=== PATIENT | male | born 1980 | race Caucasian/White ===

== ENCOUNTER 2020-07-30 11:28 | Emergency (ER) | payer OTHER, SELFPAY ==
--- NOTE | 2020-07-30 | ECG_ITS ---
Test Reason : CP Blood Pressure : / mmHG Vent. Rate : 080 BPM Atrial Rate : 080 BPM P-R Int : 150 ms QRS Dur : 090 ms QT Int : 358 ms P-R-T Axes : 019 010 -01 degrees QTc Int : 412 ms Sinus rhythm with marked sinus arrhythmia Nonspecific T wave abnormality Abnormal ECG No previous ECGs available Referred By: Jc Shankar Electronically Signed By:JACIEL RANGEL MD
--- NOTE | ~2020-07-30 | XR_ITS ---
EXAMINATION: XR CHEST CLINICAL INFORMATION: Chest pain COMPARISON: 06/09/2024 TECHNIQUE: Portable AP view of the chest was obtained. FINDINGS: The lung volumes are decreased. The cardiac silhouette is unchanged in size. No focal consolidation or atelectasis is seen. No obvious pleural effusion. XR/XR chest 1V IMPRESSION: Low lung volumes. The lungs are clear.
[2020-07-30 11:39] VITALS: BP 140/80; PULSE 93; RESP 16; TEMP 36.7; O2SAT 97; BMI 51.5
[2020-07-30 13:10] LABS: MANUAL DIFF FLAG NO
[2020-07-30 13:14] LABS: Basophils Absolute Auto 0.1 X10*3/uL (0.0-0.2); Basophils Percent Auto 0.5 % (0-2); Eosinophils Absolute Auto 0.2 X10*3/uL (0.0-0.4); Eosinophils Percent Auto 2.3 % (0-4); Imm Gran Abs Auto 0.04 X10*3/uL (0.00-0.03); Imm Gran Pct Auto 0.4 % (0.0-0.4); Lymphocytes Absolute Auto 2.5 X10*3/uL (1.2-4.9); Lymphocytes Percent Auto 27.3 % (20-40); Mean Corpuscular HGB Conc 33.3 g/dl (31.0-36.0); Mean Corpuscular Hemoglobin 27.7 pg (27.0-33.0); Mean Platelet Volume 10.2 fL (9.4-12.4); Monocytes Absolute Auto 0.7 X10*3/uL (0.1-1.2); Monocytes Percent Auto 7.4 % (2-11); Neutrophils Absolute Auto 5.8 X10*3/uL (2.0-8.3); Neutrophils Percent Auto 62.1 % (45-73); Platelet Count 260 X10*3/uL (160-400); Red Blood Count 5.06 X10*6/uL (4.60-5.80); Red Cell Distribution Width 12.8 % (11.0-16.0); White Blood Count 9.3 X10*3/uL (4.8-10.8)
[2020-07-30 13:37] LABS: Anion Gap 14 (12-20); Blood Urea Nitrogen 18 mg/dL (9-16); Calcium 9.1 mg/dL (8.4-10.2); Carbon Dioxide 23 mmol/L (22-29); Chloride 107 mmol/L (96-108); Creatinine Clr Calc Pharmacy 157.7; Estimated Glomerular Filt Rate > 60; Glucose Random 81 mg/dL (60-115); Potassium 4.6 mmol/L (3.3-5.1); Sodium 139 mmol/L (135-145)
[2020-07-30 13:45] LABS: Troponin-I High Sensitivity < 3.5 ng/L (<3.5-35.0)
[2020-07-30 16:04] VITALS: BP 137/77; PULSE 75; RESP 17; TEMP 37.1; O2SAT 99
--- NOTE | 2020-07-30 16:16 | ED_ITS ---
HPI - Chest Pain General Chief Complaint: Chest Pain Stated Complaint: CHEST PAIN Time Seen by Provider: 07/30/20 16:16 Source: patient Mode of arrival: ambulatory Limitations: no limitations History of Present Illness HPI narrative: Patient has a COVID 2 months ago since then having off and on right-sided chest pain for last 3 days pain is more frequent is sharp in correct lasting for few minutes feel little short of breath but saturating 100% on arrival no known coronary artery disease no cough no fever MD complaint: chest pain Onset (ago): day(s) (3) Timing of current episode: episodic Prior episodes: Yes Onset: during rest Pain location: substernal and right chest Pain radiation: right arm Severity: mild Quality: sharp Exacerbating factors: nothing Context: recent illness Related Data Allergies Allergy/AdvReac Type Severity Reaction Status Date / Time penicillin V Allergy Unknown Unverified 02/03/18 00:00 Penicillins [PENICILLINS] Allergy Unknown UNKNOWN Unverified 02/25/20 15:42 Sulfa (Sulfonamide Allergy Unknown Unverified 02/03/18 00:00 Antibiotics) sulfamethoxazole Allergy Unknown UNKNOWN Unverified 02/25/20 15:42 [From BACTRIM] trimethoprim [From BACTRIM] Allergy Unknown UNKNOWN Unverified 02/25/20 15:42 Review of Systems Review of Systems: Constitutional : No Weight loss, No Fever, No Chills ENT/Mouth : No sore throat, No Rhinorrhea Eyes: No Eye Pain, No Swelling Cardiovascular : + Chest Pain, no palpitations Respiratory : No Cough, No Sputum, +shortness of breath Gastrointestinal : no Nausea, No Vomiting, No Diarrhea, No abdominal Pain, no bl ack stools Genitourinary : No Dysuria, No Urinary Frequency Musculoskeletal : No joint pain, No Myalgias, No Joint Swelling Skin : No Skin Lesions, No rash Neuro : No Weakness, No Numbness, No Dizziness, No Headache Psych : No Anxiety/Panic, No Depression Heme/Lymph: No Bruising, No Lymphadenopathy Endocrine : No Polyuria, No Polydipsia All other systems reviewed and are negative PMFSH Past Medical History Surgical History History of appendectomy History of repair of ACL Social History Social History Alcohol intake: never Smoking Status: Never smoker Use of substances other than those prescribed or required for medical reasons: No Advance Directives: Yes Advance Directives Information Provided: Yes Advance Directives on File: No Physical Exam Vital Signs: Vital Signs: Last Vital Signs Temp 98.8 F 07/30/20 16:04 Pulse 75 07/30/20 16:04 Resp 17 07/30/20 16:04 BP 137/77 07/30/20 16:04 Pulse Ox 99 07/30/20 16:04 Body Mass Index 51.5 Appearance: Alert. Oriented X3. No acute distress. Eyes: Pupils equal, round and reactive to light. ENT: Pharynx normal. Neck: Normal inspection. Neck supple. CVS: Normal heart rate and rhythm. Pulses normal. Respiratory: No respiratory distress. Breath sounds normal. Tender to palpation right anterior chest Abdomen: Soft and nontender. Bowel sounds are present, no mass palpable, no CVA tenderness Skin: Skin warm and dry. Normal skin color. Normal skin turgor. Extremities: No lower extremity edema. Neuro: Oriented X 3. No motor deficit. No sensory deficit. MDM - Chest Pain MDM Narrative Medical decision making narrative: Patient atypical chest pain cardiogram without any acute ischemic changes troponin negative D-dimer also PE chest x-ray negative for infiltrate will discharge patient home advised to take analgesic and follow with PCP Differential Diagnosis Differential diagnosis: Likely atypical chest pain Medical Records Data Attestation: I reviewed the patient's medical records. Lab Data Attestation: I reviewed the patient's lab results. Result diagrams: 07/30/20 13:00 07/30/20 13:00 Labs: Lab Results 07/30/20 07/30/20 07/30/20 Range/Units 13:00 13:00 13:00 WBC 9.3 (4.8-10.8) X10*3/uL RBC 5.06 (4.60-5.80) X10*6/uL Hgb 14.0 (14.0-18.0) g/dl Hct 42.0 (42-52) % MCV 83.0 (80-98) fL MCH 27.7 (27.0-33.0) pg MCHC 33.3 (31.0-36.0) g/dl RDW 12.8 (11.0-16.0) % Plt Count 260 (160-400) X10*3/uL MPV 10.2 (9.4-12.4) fL Immature Gran % (Auto) 0.4 (0.0-0.4) % Neut % (Auto) 62.1 (45-73) % Lymph % (Auto) 27.3 (20-40) % [place] % (Auto) 7.4 (2-11) % Eos % (Auto) 2.3 (0-4) % Baso % (Auto) 0.5 (0-2) % Lymph # (Auto) 2.5 (1.2-4.9) X10*3/uL [place] # (Auto) 0.7 (0.1-1.2) X10*3/uL Eos # (Auto) 0.2 (0.0-0.4) X10*3/uL Baso # (Auto) 0.1 (0.0-0.2) X10*3/uL Abs Immat Gran (auto) 0.04 H (0.00-0.03) X10*3/uL Absolute Neuts (auto) 5.8 (2.0-8.3) X10*3/uL Absolute Nucleated RBC 0.000 (0.0-0.012) X10*3/uL Nucleated RBC % (auto) 0.0 (0.0-0.2) /100WBC D-Dimer < 200 NG/ML Hold Blue Top SEE NOTE Sodium 139 (135-145) mmol/L Potassium 4.6 (3.3-5.1) mmol/L Chloride 107 (96-108) mmol/L Carbon Dioxide 23 (22-29) mmol/L Anion Gap 14 (12-20) BUN 18 H (9-16) mg/dL Creatinine 0.80 (0.5-1.4) mg/dL Estim Creat Clear Calc 157.7 Estimated GFR > 60 Random Glucose 81 (60-115) mg/dL Calcium 9.1 (8.4-10.2) mg/dL Troponin I High Sens (<3.5-35.0) ng/L 07/30/20 Range/Units 13:00 WBC (4.8-10.8) X10*3/uL RBC (4.60-5.80) X10*6/uL Hgb (14.0-18.0) g/dl Hct (42-52) % MCV (80-98) fL MCH (27.0-33.0) pg MCHC (31.0-36.0) g/dl RDW (11.0-16.0) % Plt Count (160-400) X10*3/uL MPV (9.4-12.4) fL Immature Gran % (Auto) (0.0-0.4) % Neut % (Auto) (45-73) % Lymph % (Auto) (20-40) % [place] % (Auto) (2-11) % Eos % (Auto) (0-4) % Baso % (Auto) (0-2) % Lymph # (Auto) (1.2-4.9) X10*3/uL [place] # (Auto) (0.1-1.2) X10*3/uL Eos # (Auto) (0.0-0.4) X10*3/uL Baso # (Auto) (0.0-0.2) X10*3/uL Abs Immat Gran (auto) (0.00-0.03) X10*3/uL Absolute Neuts (auto) (2.0-8.3) X10*3/uL Absolute Nucleated RBC (0.0-0.012) X10*3/uL Nucleated RBC % (auto) (0.0-0.2) /100WBC D-Dimer NG/ML Hold Blue Top Sodium (135-145) mmol/L Potassium (3.3-5.1) mmol/L Chloride (96-108) mmol/L Carbon Dioxide (22-29) mmol/L Anion Gap (12-20) BUN (9-16) mg/dL Creatinine (0.5-1.4) mg/dL Estim Creat Clear Calc Estimated GFR Random Glucose (60-115) mg/dL Calcium (8.4-10.2) mg/dL Troponin I High Sens < 3.5 (<3.5-35.0) ng/L ECG Data ECG #1: Attestation: I personally reviewed and interpreted this ECG as follows: Interpretation: Normal sinus rhythm with sinus arrhythmia heart rate 80 beats per minute nonspecific ST T wave changes no acute ischemia normal axis Discharge Plan Discharge Clinical Impression: Atypical chest pain Patient Disposition: Home, Self-Care Instructions: Chest Pain (ED) Additional Instructions: Your Chest pain likely musculoskeletal take Tylenol/ibuprofen for pain. Follow with PCP for further evaluation and treatment
[2020-07-30 16:41] LABS: D Dimer < 200 NG/ML
[2020-07-30 18:18] VITALS: BP 130/79; PULSE 68; RESP 17; TEMP 37.1; O2SAT 99
--- NOTE | 2020-07-30 18:18 | PC.NURSE ---
pt has been resting w/o chest pain since arrival to bed. states he's had custodial sx of covid including SOB with minimal exertion. LS cta skin pwd. nsr on monitor. will f/u with pcp and possibly consult cardio.
== END 2020-07-30 18:21 | disposition home or self-care (01) ==
PROVIDERS: Emergency Provider Internal Medicine
DX: R07.89 Other chest pain (principal); Z86.16 Personal history of COVID-19
CPT/HCPCS: 36415; 71045; 80048; 84484; 85025; 85379; 93005; 99283; 99284

== ENCOUNTER 2023-08-26 08:02 | Outpatient (AMB) | payer OTHER, SELFPAY ==
--- NOTE | 2023-08-26 08:11 | A.OFFVIS_ITS ---
Intake Vital Signs 08/26/23 08:13 Height 5 ft 4 in Weight 330 lb 11.094 oz BMI 56.8 BP 136/68 Blood Pressure Location Lt brachial Position Sitting Pulse 100 Pulse Source Pulse Oximeter Pulse Oximetry (%) 96 Oxygen Delivery Method Room Air Intake Visit Reasons: Somnolence, room 2 Hand Tube Bender Required: No Transportation Specialist: Transportation Specialist offered & declined Accompanied by: Self / Same As Patient Allergies penicillin V Allergy (Unknown, Unverified 08/26/23 08:18) rash Penicillins [PENICILLINS] Allergy (Unknown, Unverified 08/26/23 08:18) UNKNOWN Sulfa (Sulfonamide Antibiotics) Allergy (Unknown, Unverified 08/26/23 08:18) rash sulfamethoxazole [From BACTRIM] Allergy (Unknown, Unverified 08/26/23 08:18) UNKNOWN trimethoprim [From BACTRIM] Allergy (Unknown, Unverified 08/26/23 08:18) UNKNOWN Medication List - Last Reconciled 08/26/23 by Kaleigh Liu LPN albuterol sulfate 90 mcg/actuation 1 puff inhalation Q4-6H PRN multivitamin 1 tab PO DAILY HPI Somnolence HPI Details Hi is a pleasant 43 year old male, never smoker, with underlying childhood asthma, seasonal allergies and BMI 56. He was referred by PCP for pulmonary evaluation for possible PETRONA. He reports ongoing symptoms of significant daytime fatigue, morning headaches, snoring as well as BUE par esthesias. He underwent EMG and cervical imaging which was unremarkable. He denies prior sleep study. He also reports worsening control of asthma since having COVID in 2019. He reports moderate wheezing, intermittent chest tightness and dyspnea with moderate exertion. He denies cough. He does have albuterol which he uses infrequently. He reports symptoms can be triggered by seasonal allergies which are usually mild. He denies any pertinent family history. 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 [facility] Surgical History History of appendectomy History of repair of ACL Social History (Updated 08/26/23 @ 08:20 by Kaleigh Liu LPN) Alcohol intake: never Patient Tobacco Use Status: Never used Tobacco Review of Systems Const Denies chills, Denies excessive sweating, Denies fever(s), Denies headache(s) and Denies night sweats Eyes Denies dry eyes, Denies irritation and Denies itchy eyes ENT Reports Normal hearing present, Denies headache(s), Denies nasal discharge, Denies post nasal drip and Denies sore throat Card Denies chest pain, Denies chest pain at rest, Denies chest pain with activity, Denies claudication, Denies leg edema, Denies orthopnea and Denies paroxysmal nocturnal dyspnea Resp Denies chest congestion, Denies cough, Denies excessive phlegm production, Denies pain on inspiration, Denies pain with cough, Denies stridor and Denies wheezing Musc Denies myalgias Neuro Reports Normal hearing present and Denies headache(s) Endo Denies excessive sweating Jorge L/Lymph Denies lymphadenopathy Aller/Immun Denies itchy eyes and Denies wheezing Physical Exam Vital Signs: Last Vital Signs Pulse 100 08/26/23 08:13 BP 136/68 08/26/23 08:13 Pulse Ox 96 08/26/23 08:13 Oxygen Delivery Method Room Air 08/26/23 08:13 BMI result Body Mass Index 56.8 Const General: cooperative, healthy appearing, comfortable, no acute distress, well developed and alert Nutritional Appearance: obese Orientation/consciousness: patient oriented x3 Limitations: no limitations HEENT Head: Yes normal to inspection, Yes normocephalic and Yes atraumatic Ears: hearing grossly normal bilaterally and external ears normal Eyes General: appearance normal, both eyes and all related structures Eyelids: Yes eyelids normal Sclerae: sclerae normal EOM: EOMs intact bilaterally Neck Neck: Yes normal visual inspection and Yes no lymphadenopathy Lymphatic: no lymphadenopathy noted Chest Chest palpation & inspection: normal inspection of the chest Resp Effort & Inspection: normal respiratory effort, able to speak in complete sentences, no audible wheezes, no cough, no stridor, not tachypneic, no tripod positioning and no use of accessory muscles Auscultation: clear to auscultation bilaterally Cardio Jugular venous distension: no JVD Rate: regular rate Rhythm: regular rhythm Skin Other: warm, dry General skin exam: no rashes or lesions noted Neuro General: patient oriented x3 Cranial nerves: Yes Normal hearing present Cognition (Neuro): normal cognition Gait exam (Neuro): Normal gait present Extrem General: Yes normal to inspection, Yes capillary refill normal, Yes no clubbing, cyanosis or edema and Yes no pedal edema Psych Appearance: grossly normal and well kempt Speech and movement: Normal speech and movement present and Clear speech present Affect: normal affect Attitude: cooperative Thought process: Normal thought process present Thought content: Normal thought content present Insight: Good insight present (Psych) Judgement: Good judgement present (Psych) Assessment & Plan Assessment & Plan (1) Asthma: Code(s): J45.909 - Unspecified asthma, uncomplicated (2) Dyspnea: Code(s): R06.00 - Dyspnea, unspecified (3) Daytime somnolence: Code(s): R40.0 - Somnolence Plan Hi presents for pulmonary evaluation for symptoms suggestive of PETRONA. Will send for home sleep study. Sleep hygiene discussed. Patient also noted worsening asthma control, although still mild, encouraged patient to use albuterol PRN and if he finds he uses frequently to call the office to trial an ICS. Symptoms are likely related to underlying asthma as well as obesity/deconditioning etiologies. Will send for PFT and CXR to thoroughly evaluate. All questions were answered and patient is in agreement of plan. Will follow up to review results or sooner if needed. Orders: Orders XR chest 2V Today R06.00 - Dyspnea, unspecified PFT pulmonary function test Today J45.909 - Unspecified asthma, uncomplicated RT home sleep study Today R40.0 - Somnolence Medications: New albuterol sulfate 90 mcg/actuation 2 puffs inhalation Q4-6H PRN 1 ea 3RF shortness of breath or wheezing Coding Level of Care Code New Pt Level 4 (64850) Diagnoses Asthma J45.909 Dyspnea R06.00 Daytime somnolence R40.0
[2023-08-26 08:13] VITALS: BP 136/68; PULSE 100; O2SAT 96; BMI 56.8
== END 2023-08-26 08:41 | disposition home or self-care (01) ==
PROVIDERS: PCP Hospitalist; Visit Provider Nurse Practitioner Family
DX: J45.909 Unspecified asthma, uncomplicated (principal); R06.00 Dyspnea, unspecified; R40.0 Somnolence
CPT/HCPCS: 99204

== ENCOUNTER → 2023-08-26 08:02 | Outpatient (BNVA) | payer OTHER, SELFPAY | PROVIDERS: PCP Hospitalist; Visit Provider Nurse Practitioner Family ==

== ENCOUNTER → 2023-10-03 13:52 | Outpatient (REF) | payer OTHER, SELFPAY | LOC: HO.SL 13:52 | PROVIDERS: PCP Hospitalist; Visit Provider Nurse Practitioner Family | DX: R40.0 Somnolence (principal); G47.33 Obstructive sleep apnea (adult) (pediatric) | CPT/HCPCS: 95806 ==

== ENCOUNTER → 2023-10-03 14:06 | Outpatient (BNV) | payer OTHER, SELFPAY | PROVIDERS: PCP Hospitalist; Visit Provider Internal Medicine | DX: G47.33 Obstructive sleep apnea (adult) (pediatric) (principal) | CPT/HCPCS: 95806 ==

== ENCOUNTER 2023-11-14 16:13 | Outpatient (REF) | payer OTHER, SELFPAY ==
--- NOTE | ~2023-11-14 | XR_ITS ---
EXAMINATION: XR CHEST CLINICAL INFORMATION: Dyspnea unspecified COMPARISON: 07/30/2020 TECHNIQUE: 2 views of the chest were obtained. FINDINGS: Lungs grossly clear. Heart and pulmonary vessels normal. No congestive change. XR/XR chest 2V IMPRESSION: No active disease.
== END 2023-11-14 16:14 | disposition home or self-care (01) ==
LOC: HO.XRAY 16:13
PROVIDERS: PCP Hospitalist; Visit Provider Nurse Practitioner Family
DX: R06.00 Dyspnea, unspecified (principal)
CPT/HCPCS: 71046

== ENCOUNTER 2023-11-15 | Outpatient (REF) | payer OTHER, SELFPAY ==
[2023-11-15 10:33] VITALS: PULSE 74; RESP 16; O2SAT 97
== END 2023-11-15 00:01 | disposition home or self-care (01) ==
LOC: HO.RESP
PROVIDERS: PCP Hospitalist; Visit Provider Nurse Practitioner Family
DX: J45.909 Unspecified asthma, uncomplicated (principal)
CPT/HCPCS: 94010; 94640; 94727; 94729

== ENCOUNTER 2023-11-15 14:47 | Outpatient (REF) | payer OTHER, SELFPAY ==
--- NOTE | 2023-11-15 15:53 | PFT_ITS ---
Indication: PETRONA Spirometry [FEV1 to FVC 75%; FEV1 3.19 L; FVC 4.25 L. No significant response to bronchodilators noted.] Lung Volumes [Total lung capacity 101% predicted; residual volume 127% predicted] Diffusion Capacity [DLCO 101% predicted] Comparisons [None] Interpretation [No obstructive nor restrictive ventilatory defects identified. No significant response to bronchodilators noted. Mild decrease in the maximum voluntary ventilation secondary to likely deconditioning. Lung volumes do demonstrate significant air trapping likely secondary to small airways disease. Diffusing capacity is within normal limits. Clinical correlation warranted.] MTDD
== END 2023-11-15 14:48 | disposition home or self-care (01) ==
LOC: HO.RESP 14:47
PROVIDERS: PCP Hospitalist; Visit Provider Nurse Practitioner Family
DX: J45.909 Unspecified asthma, uncomplicated (principal)
CPT/HCPCS: 94010; 94640; 94727; 94729

== ENCOUNTER → 2023-11-15 15:53 | Outpatient (BNV) | payer OTHER, SELFPAY | PROVIDERS: PCP Hospitalist; Visit Provider Hospitalist | DX: J45.909 Unspecified asthma, uncomplicated (principal) | CPT/HCPCS: 94060; 94727; 94729 ==

== ENCOUNTER 2023-12-02 09:28 | Outpatient (AMB) | payer OTHER, SELFPAY ==
--- NOTE | 2023-12-01 19:50 | MHC.OFFVIS ---
Vital Signs 12/02/23 09:33 Height 5 ft 4 in Weight 284 lb 6.341 oz BMI 48.8 BP 110/78 Blood Pressure Location Rt brachial Position Sitting Pulse 82 Pulse Source Pulse Oximeter Pulse Oximetry (%) 96 Oxygen Delivery Method Room Air Intake Visit Reasons: Somnolence Allergies penicillin V Allergy (Unknown, Unverified 12/02/23 09:36) rash Penicillins [PENICILLINS] Allergy (Unknown, Unverified 12/02/23 09:36) UNKNOWN Sulfa (Sulfonamide Antibiotics) Allergy (Unknown, Unverified 12/02/23 09:36) rash sulfamethoxazole [From BACTRIM] Allergy (Unknown, Unverified 12/02/23 09:36) UNKNOWN trimethoprim [From BACTRIM] Allergy (Unknown, Unverified 12/02/23 09:36) UNKNOWN HPI HPI Somnolence: Details: Hi is a pleasant 43 year old male, never smoker, with underlying childhood asthma, seasonal allergies and obesity. At the last visit, he was sent for a home sleep study for ongoing symptoms of significant daytime fatigue, morning headaches, snoring as well as BUE paresthesias. He underwent EMG and cervical imaging which was unremarkable. He denies prior sleep study. He also reported worsening control of asthma since having COVID in 2019. He reports dyspnea with moderate exertion. He denies cough, chest tightness or wheezing. Today he presents to review PFT, CXR and home sleep study results. Of note, patient continues to be quite symptomatic with PETRONA symptoms, despite BMI decreasing from 56 to 48. [facility] Surgical History History of appendectomy History of repair of ACL Social History (Updated 08/26/23 @ 08:20 by Kaleigh Liu LPN) Alcohol intake: never Patient Tobacco Use Status: Never used Tobacco Review of Systems Const Denies chills, Denies excessive sweating, Denies fever(s), Denies headache(s) and Denies night sweats Eyes Denies dry eyes, Denies irritation and Denies itchy eyes ENT Reports Normal hearing present, Denies headache(s), Denies nasal discharge, Denies post nasal drip and Denies sore throat Card Denies chest pain, Denies chest pain at rest, Denies chest pain with activity, Denies claudication, Denies leg edema, Reports dyspnea on exertion, Denies orthopnea and Denies paroxysmal nocturnal dyspnea Resp Denies chest congestion, Denies cough, Denies excessive phlegm production, Denies pain on inspiration, Denies pain with cough, Reports dyspnea on exertion, Denies stridor and Denies wheezing Musc Denies myalgias Neuro Reports Normal hearing present and Denies headache(s) Endo Denies excessive sweating Jorge L/Lymph Denies lymphadenopathy Aller/Immun Denies itchy eyes and Denies wheezing Physical Exam Vital Signs: Last Vital Signs Pulse 82 12/02/23 09:33 BP 110/78 12/02/23 09:33 Pulse Ox 96 12/02/23 09:33 Oxygen Delivery Method Room Air 12/02/23 09:33 BMI result Body Mass Index 48.8 Const General: cooperative, healthy appearing, comfortable, no acute distress, well developed and alert Nutritional Appearance: obese Orientation/consciousness: patient oriented x3 Limitations: no limitations HEENT Head: Yes normal to inspection, Yes normocephalic and Yes atraumatic Ears: hearing grossly normal bilaterally and external ears normal Eyes General: appearance normal, both eyes and all related structures Eyelids: Yes eyelids normal Sclerae: sclerae normal EOM: EOMs intact bilaterally Neck Neck: Yes normal visual inspection and Yes no lymphadenopathy Lymphatic: no lymphadenopathy noted Chest Chest palpation & inspection: normal inspection of the chest Resp Effort & Inspection: normal respiratory effort, able to speak in complete sentences, no audible wheezes, no cough, no stridor, not tachypneic, no tripod positioning and no use of accessory muscles Auscultation: clear to auscultation bilaterally Cardio Jugular venous distension: no JVD Rate: regular rate Rhythm: regular rhythm Skin Other: warm, dry General skin exam: no rashes or lesions noted Neuro General: patient oriented x3 Cranial nerves: Yes Normal hearing present Cognition (Neuro): normal cognition Gait exam (Neuro): Normal gait present Extrem General: Yes normal to inspection, Yes capillary refill normal, Yes no clubbing, cyanosis or edema and Yes no pedal edema Psych Appearance: grossly normal and well kempt Speech and movement: Normal speech and movement present and Clear speech present Affect: normal affect Attitude: cooperative Thought process: Normal thought process present Thought content: Normal thought content present Insight: Good insight present (Psych) Judgement: Good judgement present (Psych) Assessment & Plan Assessment & Plan (1) Asthma: Code(s): J45.909 - Unspecified asthma, uncomplicated Category: Medical (2) Dyspnea: Code(s): R06.00 - Dyspnea, unspecified Category: Medical (3) Obstructive sleep apnea: Code(s): G47.33 - Obstructive sleep apnea (adult) (pediatric) Category: Medical Plan Reviewed PFT which revealed no obstructive nor restrictive ventilatory defects. No significant response to bronchodilators noted. Mild decrease in the maximum voluntary ventilation secondary to likely deconditioning. Lung volumes do demonstrate significant air trapping likely secondary to small airways disease. Diffusing capacity is within normal limits. Patient previously only using albuterol, we discussed initiating a daily inhaler due to worsening dyspnea and patient in agreement. Discussed importance or good oral hygiene. CXR unremarkable. 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 We discussed weight management, at least 10% of body weight which patient has been working towards, however due to symptoms patient interested in initiating CPAP therapy. Will send in prescription for APAP mode and pressure settings of 6-20 cm with close monitoring for compliance and benefits. Sleep hygiene education reviewed. He is aware if there are any issues with the mask or CPAP machine, he will call the office. All questions were answered and patient is in agreement of plan. Will follow up in 8 weeks. Medications: New fluticasone propionate 110 mcg/actuation administer with spacer 2 puffs inhalation BID 12 grams 3RF Coding Level of Care Code Est Pt Level 4 (10571) Diagnoses Asthma J45.909 Dyspnea R06.00 Obstructive sleep apnea G47.33
[2023-12-02 09:33] VITALS: BP 110/78; PULSE 82; O2SAT 96; BMI 48.8
== END 2023-12-02 10:12 | disposition home or self-care (01) ==
PROVIDERS: PCP Hospitalist; Visit Provider Nurse Practitioner Family
DX: J45.909 Unspecified asthma, uncomplicated (principal); R06.00 Dyspnea, unspecified; G47.33 Obstructive sleep apnea (adult) (pediatric)
CPT/HCPCS: 99214

== ENCOUNTER → 2023-12-02 09:28 | Outpatient (BNVA) | payer OTHER, SELFPAY | PROVIDERS: PCP Hospitalist; Visit Provider Nurse Practitioner Family ==